=== PATIENT | male | born 1945 | race Caucasian/White ===

== ENCOUNTER → 2017-11-19 10:17 | Outpatient (CLI) | payer MEDICARE, OTHER | END | disposition home or self-care (01) | LOC: D.CT 10:17 | DX: Z85.118 Personal history of other malignant neoplasm of bronchus and lung (principal) ==

== ENCOUNTER 2020-06-17 10:18 | Inpatient (IN) | payer OTHER ==
[~2020-06-17] VITALS: Ht 182.9 cm; Wt 61.7 kg
[2020-06-17 10:49] LABS: BASOPHILS 0.1 % (0-2); EOSINOPHILS 0 % (0-7); HEMATOCRIT 38.3 % (42.0-54.0); HEMOGLOBIN 13.9 g/dL (13.5-17.5); IMMATURE GRANULOCYTES 0.5 % (0-5); LYMPHOCYTE ABS# 5.82 10x3/uL (1.32-3.57); LYMPHOCYTES 39.8 % (15-50); MCH 32.4 pg (26.0-34.0); MCHC 36.3 g/dL (31.0-37.0); MCV 89.3 fL (80.0-100.0); MONOCYTES 2.5 % (2-11); NEUTROPHIL ABS# 8.36 10x3/uL (1.78-5.38); NEUTROPHILS 57.1 % (40-80); PLATELET COUNT 155 10x3/uL (130-400); RBC 4.29 10x6/uL (4.20-6.10); RDW 15.5 % (11.5-14.5); WBC 14.6 10x3/uL (4.8-10.8)
[2020-06-17 11:27] LABS: CALC OSMOLALITY 272 mosm/kg (275-300); CALCIUM 9.4 mg/dL (8.5-10.1); CARBON DIOXIDE 26.9 mmol/L (21.0-32.0); CHLORIDE - SERUM 97 mmol/L (98-107); CREATININE - SERUM 1.1 mg/dL (0.6-1.3); GLUCOSE 73 mg/dL (74-106); POTASSIUM - SERUM 4.5 mmol/L (3.5-5.1); SODIUM 133 mmol/L (136-145); UREA NITROGEN 35 mg/dL (7-18); eGFR NON AFRICAN AMERICAN 69 mL/min (90-120)
[2020-06-17 11:33] LABS: ALBUMIN 2.6 g/dL (3.4-5.0); ALT (SGPT) 235 U/L (10-68); AMYLASE - SERUM 38 U/L (25-115); BILIRUBIN - TOTAL 7.37 mg/dL (0.2-1.3); PROTEIN - SERUM 6.3 g/dL (6.4-8.2); TROPONIN-I < 0.017 ng/mL (0.000-0.060)
[2020-06-17 11:40] LABS: ALKALINE PHOSPHATASE 1762 U/L (30-120); LIPASE 37 U/L (73-393)
[2020-06-17 16:38] VITALS: BP 153/87
--- NOTE | 2020-06-17 19:20 | NUR ---
PATIENT RESTING IN BED WITH SON AT BEDSIDE. PATIENT DENIES NEEDS AT THIS TIME. BED IN LOWEST POSITION AND CALL LIGHT IN REACH. ENCOURAGED PATIENT AND SON TO CALL WITH NEEDS.
--- NOTE | 2020-06-17 20:08 | NUR ---
SET SYSTEM MANAGER UP FOR PATIENT C/O 8/10 CRAMPING ABDOMINAL PAIN.
--- NOTE | 2020-06-17 21:45 | NUR ---
PATIENT UNABLE TO VOID. PLACED 16F PRICE CATH PER ORDER FROM DR. COLLINS.
--- NOTE | 2020-06-18 07:25 | NUR ---
pt laying in bed with eyes closed, repsonds to verbal stimuli, pt alert and oriented, no needs voiced at this time, call light and small parts shaper operator button in reach, will monitor
[2020-06-18 08:00] VITALS: BP 129/78
--- NOTE | 2020-06-18 08:00 | NUR ---
son at bedside
--- NOTE | 2020-06-18 08:55 | NUR ---
pt sitting up eating breakfast, call light in reach, son at bedside
--- NOTE | 2020-06-18 11:42 | NUR ---
daughter and son at bedside
[2020-06-18] MEDS ORDERED: DULCOLAX10 MG/SUPP RC (13:12)
[2020-06-18] MEDS ORDERED: NEURONTIN600 MG PO (13:13)
[2020-06-18] MEDS ORDERED: LISINOPRIL20 MG PO (13:14)
[2020-06-18] MEDS ORDERED: ADVIL200 MG PO (13:14)
[2020-06-18] MEDS ORDERED: MORPHINE S10 MG/5 ML PO (13:18)
[2020-06-18] MEDS ORDERED: POLY-VI-SOL W/I50 ML PO (13:19)
[2020-06-18] MEDS ORDERED: ULTRAM50 MG PO (13:20)
--- NOTE | 2020-06-18 13:40 | NUR ---
hospice nurse in with patient
[2020-06-18 13:53] VITALS: BP 135/82
[2020-06-18 14:36] VITALS: Ht 182.9 cm; Wt 61.7 kg
[2020-06-18 17:43] VITALS: BP 140/85
--- NOTE | 2020-06-18 17:45 | NUR ---
pt resting, daughter at bedside, will monitor
[2020-06-18 19:09] VITALS: BP 129/76
--- NOTE | 2020-06-18 20:36 | NUR ---
COLLECTED URINE FOR ORDERED URINALYSIS FROM [facility]. DELIVERED TO LAB.
[2020-06-18 21:13] LABS: KETONE NEGATIVE (NEGATIVE); NITRITE NEGATIVE (NEGATIVE)
[2020-06-18 21:14] LABS: BILIRUBIN 1+ (NEGATIVE)
[2020-06-18 21:15] LABS: BACTERIA FEW HPF (NONE SEEN); SQUAMOUS EPITHELIAL 0-5 HPF (0-4)
[2020-06-18 21:16] LABS: GRANULAR CAST 0-5 LPF (NONE SEEN)
--- NOTE | 2020-06-18 22:00 | NUR ---
FAMILY WENT HOME FOR THE NIGHT. WILL CALL IF ANY CHANGED IN PT'S CONDITION.
--- NOTE | 2020-06-19 01:20 | NUR ---
PT GETTING RESTLESS AND MOANING....GAVE ATIVAN 1 MG IVP PER PRN ORDER. WILL CONTINUE TO MONITOR.
--- NOTE | 2020-06-19 04:49 | NUR ---
PT BATHED AND ALL LINENS AND GOWN CHANGED. PLACED SOCKS AND HEEL PROTECTORS ON BILATERAL FEET / HEELS, HEELS ARE GETTING RED. CHANGED MEPILEX HEART ON COCCYX FOR CUSHIONING OF NUBIA PROMINANCES THAT ARE GETTING RED. PRICE CARE PERFORMED. POSITIONED WITH PILLOW TO TURN TO LEFT SIDE, AND BRIDGED HEELS.
--- NOTE | 2020-06-19 08:30 | NUR ---
PATIENT IN BED WITH IV INTACT. NO COMPLAINTS OR SIGNS OF DISTRESS. FAMILY AT BEDSIDE. CALL LIGHT WITHIN REACH. PATIENT LAYING ON SIDE WITH HEELS FLOATING.
[2020-06-19 09:25] VITALS: BP 125/67
--- NOTE | 2020-06-19 10:50 | NUR ---
PATIENT CHANGED AND REPOSITIONED. IV INTACT. DRESSING TO COCCYX REMOVED. ONLY SMALL RED AREA ON COCCYX. WILL REPLACE WITH A SMALLER DRESSING. FAMILY AT BEDSIDE. CALL LIGHT WITHINR EACH.
--- NOTE | 2020-06-19 12:00 | NUR ---
PATIENT ORAL CARE DONE BY DAUGHTER AT THIS TIME. PATIENT STILL RESTING. EXPLAINED IF HE WAS GETTING RESTLESS OR NEEDED ATIVAN TO LET NURSE KNOW. VERBALIZED UNDERSTANDING. CALL LIGHT WITHIN REACH.
--- NOTE | 2020-06-19 13:15 | NUR ---
REPORT GIVEN TO ANNE BURT
--- NOTE | 2020-06-19 14:05 | NUR ---
PT IN BED SUPINE WITH EYES CLOSED. BREATHING SHALLOW BUT NONLABORED. DAUGHTER IS AT BEDSIDE. DENIES ANY NEEDS AT THIS TIME. BED IN LOWEST POSITION, BED RAILS X2, CALL LIGHT WITHIN REACH. WILL CONTINUE POC.
--- NOTE | 2020-06-19 18:46 | NUR ---
PRN ATIVAN FOR ANXIETY/AGGITATION. SITUATED COMFORTABLY IN BED. FAMILY AT BEDSIDE. DENIES ANY NEEDS AT THIS TIME. BED IN LOWEST POSIITON, BED RAILS X2, CALL LIGHT WITHIN REACH. WILL CONTINUE POC.
[2020-06-19 20:00] VITALS: BP 128/70
--- NOTE | 2020-06-20 00:18 | NUR ---
PT IS RESTING COMFORTABLY IN BED. FAMILY AT BEDSIDE. NO DISTRESS NOTED AT THIS TIME. BREATHING IS NONLABORED AT THIS TIME. PT WAS CLEANED AND CHANGED. DRESSING WAS APPLIED TO BOTTOM. PRICE IN PLACE AND DRAINING. BED IN LOW POSITION WITH CALL LIGHT IN REACH.
--- NOTE | 2020-06-20 07:00 | NUR ---
WALKING ROUNDS. IN BED SUPINE WITH EYES CLOSED, BREATHING SHALLOW BUT NONLABORED. NO S/S OF DISTRESS NOTED AT THIS TIME. FAMILY AT BEDSIDE, DENIES ANY NEEDS. BED IN LOWEST POSITION, BED RAILS X2, CALL LIGHT WITHIN REACH. WILL CONTINUE POC.
--- NOTE | 2020-06-20 08:54 | NUR ---
IN BED SUPINE WITH EYES CLOSED, BREATHING EVEN AND NONLABORED, SHALLOW. FAMILY AT BEDSIDE. DENIES ANY NEEDS AT THIS TIME. BED IN LOWEST POSITION, BED RAILS X2, CALL LIGHT WITHIN REACH. WILL CONTINUE POC ASSESSMENT PERFORMED AT THIS TIME.
[2020-06-20 09:01] VITALS: BP 129/82
--- NOTE | 2020-06-20 13:00 | NUR ---
FULL LINEN CHANGE, TILTED PATIENT ON LEFT SIDE, PILLOW BETWEEN LEGS AND UNDER FEET. MEPILEX ON COCCYX ON BLANCHABLE REDDENED AREA. RESTING COMFORTABLY. FAMILY AT BEDSIDE. DENIES FURTHER NEEDS.
--- NOTE | 2020-06-20 14:16 | NUR ---
RESTING SUPINE IN BED WITH EYES CLOSED, BREATHING SHALLOW BUT NON LABORED. NO S/S OF DISTRESS NOTED AT THIS TIME. FAMILY AT BEDSIDE. WILL CONTINUE POC.
--- NOTE | 2020-06-20 14:21 | NUR ---
Nutrition follow-up: Pt with regular diet ordered but not eating. Comfort care; DNR per physician, family Pt unresponsive today per nurse No labs; no new wt RDN with nothing to offer at this time Will follow-up for any change in status: 06/25/20
--- NOTE | 2020-06-20 16:28 | NUR ---
FAMILY IS UNSURE OF DOING INPATIENT HOSPICE. STATES THERE IS A DISCONNECT IN COMMUNICATION BETWEEN HOSPITAL DOCTORS AND HOSPICE. WILL CONTACT DR. COLLINS AND TALK WITH HIM. PT IS RESTING COMFORTABLY AT THIS TIME. WILL CONTINUE POC.
--- NOTE | 2020-06-20 16:39 | NUR ---
PLACED NEW [employer]IL[employer] MARKETING SPECIALIST IN [place]MP. FAMILY AT BEDSIDE. DENIES FURTHER NEEDS. WILL CONTINUE POC.
--- NOTE | 2020-06-20 19:25 | NUR ---
I have reviewed this patient and I concur with the Shift Assessment completed by the Licensed Practical Nurse today this shift.
[2020-06-20 20:00] VITALS: BP 122/82
--- NOTE | 2020-06-20 22:48 | NUR ---
PT RESTING COMFORTABLY IN BED. FAMILY ALONG BEDSIDE. PTS BEDDING WAS CHANGED. PT'S BREATHS ARE NON LABORED. BED IN LOWEST POSITION. CALL LIGHT IN REACH.
[2020-06-21 08:57] VITALS: BP 148/98
[2020-06-21 20:00] VITALS: BP 118/74
--- NOTE | 2020-06-21 20:00 | NUR ---
RESTING QUITELY IN BED, RESP EVEN AND UNLABORED, NO APPARENT DISTRESS, FAMILY AT BEDSIDE, SEE SHIFT ASSESSMENT
[2020-06-22 04:00] VITALS: BP 108/47
--- NOTE | 2020-06-22 11:18 | NUR ---
I have reviewed this patient and I concur with the Shift Assessment completed by the Licensed Practical Nurse today this shift.
[2020-06-22 13:05] VITALS: BP 133/89
--- NOTE | 2020-06-22 14:47 | NUR ---
REC'D IN BED EYES CLOSED NONRESPONSIVE AT THIS TIME. RESP EVEN AND UNLABORED WITH NO DISTRESS NOTED. UNABLE TO EXPRESS NEEDS AND WANTS. NO PAIN OR DISCOMFORT NOTED SUCH MOANING OR FACIAL GRIMACES. ASSESSMENT COMPLETED. C/L AND DAUGHTER AT BEDSIDE.
[2020-06-22 21:01] VITALS: BP 127/73
--- NOTE | 2020-06-23 02:35 | NUR ---
I have reviewed this patient and I concur with the Shift Assessment completed by the Licensed Practical Nurse today this shift.
--- NOTE | 2020-06-23 03:30 | NUR ---
NO S/S OF DISTRESS NOTED, BREATHING SHALLOW
[2020-06-23 06:21] VITALS: BP 137/77
--- NOTE | 2020-06-23 08:12 | NUR ---
SUPINE IN BED, HEAD ELEVATED. ADMINISTERED ATIVAN AT THIS TIME. DAUGHTER AT BEDSIDE. DENIES ANY NEEDS. PT IS COMFORTABLE AT THIS TIME. BED IN LOWEST POSITION, BED RAILS X2, CALL LIGHT WITHIN REACH. WILL CONTINUE POC.
[2020-06-23 09:11] VITALS: BP 111/61
--- NOTE | 2020-06-23 12:29 | NUR ---
ADMINISTERED ATIVAN AND PROVIDED ORAL CARE. BREATHING IS SHALLOW AND IRREGULAR. EYES ARE GLAZEY AND AM UNABLE TO CLOSE EYELIDS. RECLINED IN BED. NO S/S OF DISTRESS NOTED AT THIS TIME. WILL CONTINUE POC.
--- NOTE | 2020-06-23 12:49 | NUR ---
PATIENT FAMILY STATED HE DOES NOT THINK THE PATIENT IS BREATHING ANYMORE. WENT TO ROOM, AUSCULTATED NO RESPIRATIONS. NO CAROTID PULSE NOTED. DR. HERNANDEZ NOTIFIED. STATED SHE WOULD CALL ER PHYSICIAN TO PRONOUNCE PATIENT.
--- NOTE | 2020-06-23 12:55 | NUR ---
FAMILY MEMBER TO THE DESK. REPORTS HIS FATHER "STOPPED BREATHING". NO HEART/LUNCH SOUNDS AUSCULTATED. CONTACTED TO CALL TIME OF
--- NOTE | 2020-06-23 13:39 | NUR ---
ER DOCTOR PRONOUNCED PT, CONTACTED [facility]. HOME CONTACTED. PATIENT HAS BEEN CLEANED AND PREPARED FOR THE HOME.
== END 2020-06-23 14:38 | DRG 951 ==
LOC: D.ER 10:18 → D.MS 13:54
PROVIDERS: Family Medicine; ADMIT Legal Medicine; ATTEND Legal Medicine
DX: Z51.5 Encounter for palliative care (principal)